=== PATIENT | female | born 1985 ===

== ENCOUNTER 2023-01-03 06:15 | Day surgery (SDC) | payer OTHER ==
[~2023-01-03] VITALS: Ht 157.5 cm; Wt 68.0 kg
[~2023-01-03 06:15] MED LIST: CELLCEPT500 MG PO; MILLIPRED5 MG PO
== END 2023-01-03 16:50 | disposition home or self-care (01) ==
LOC: CIR.AMB 06:15
PROVIDERS: ATTEND Orthopaedic Surgery Hand Surgery
DX: S62.330A Displaced fracture of neck of second metacarpal bone, right hand, initial encounter for closed fracture (principal); E11.9 Type 2 diabetes mellitus without complications; Z20.822 Contact with and (suspected) exposure to COVID-19; I10 Essential (primary) hypertension